=== PATIENT | male | born 1985 | race Caucasian/White ===

== ENCOUNTER 2019-04-10 20:51 | Emergency (ER) | payer BC, OTHER ==
[~2019-04-10] VITALS: Ht 175.3 cm; Wt 58.2 kg
[~2019-04-10 20:51] MED LIST: LIDO20SO16 PO
[2019-04-10 21:05] VITALS: BP 106/64
[2019-04-10] MEDS ORDERED: ERYT1OIN6 LEFTEYE (22:17)
== END 2019-04-10 22:30 | disposition home or self-care (01) ==
LOC: ER 20:51
DX: H00.014 Hordeolum externum left upper eyelid (principal); Z72.89 Other problems related to lifestyle; Z79.899 Other long term (current) drug therapy
CPT/HCPCS: 99283

== ENCOUNTER 2021-10-19 14:48 | Emergency (ER) | payer SELFPAY ==
[~2021-10-19] VITALS: Ht 175.3 cm; Wt 63.6 kg
[2021-10-19 15:28] VITALS: BP 100/64
== END 2021-10-19 17:43 | disposition left against medical advice (07) ==
LOC: ER 14:48
DX: U07.1 COVID-19 (principal); Z53.21 Procedure and treatment not carried out due to patient leaving prior to being seen by health care provider

== ENCOUNTER 2022-04-07 17:42 | Emergency (ER) | payer MEDICAID ==
[~2022-04-07] VITALS: Ht 172.7 cm; Wt 59.1 kg
[2022-04-07 18:03] LABS: BASOPHILS % (AUTO) 0.5 % (0-1); EOSINOPHILS % (AUTO) 0.6 % (0-6); HEMATOCRIT 40.6 % (42.0-52.0); HEMOGLOBIN 13.7 g/dl (14.0-17.9); LYMPHOCYTES % (AUTO) 33.7 % (21-51); MEAN CORPUSCULAR HEMOGLOBIN 32.9 PG (27.0-31.0); MEAN CORPUSCULAR HGB CONC 33.7 g/dL (33.0-36.5); MEAN CORPUSCULAR VOLUME 97.9 FL (78-98); MEAN PLATELET VOLUME 7.2 FL (7.4-10.4); MONOCYTES # (AUTO) 0.4 X10'3 (0-0.9); MONOCYTES % (AUTO) 6.6 % (2-12); NEUTROPHILS # (AUTO) 3.5 X10'3 (1.8-7.7); NEUTROPHILS % (AUTO) 58.6 % (42-75); PLATELET COUNT 245 X10'3 (140-440); RED BLOOD COUNT 4.15 X10'6 (4.70-6.10); RED CELL DISTRIBUTION WIDTH 13.3 % (11.5-14.5)
[2022-04-07 18:10] VITALS: BP 124/73
[2022-04-07 18:19] LABS: ALANINE AMINOTRANSFERASE 22 U/L (12-78); ALBUMIN 4.4 G/DL (3.4-5.0); ALBUMIN/GLOBULIN RATIO 1.3 (1.1-1.5); ALKALINE PHOSPHATASE 72 IU/L (46-116); ANION GAP 7 (8-16); ASPARTATE AMINO TRANSFERASE 18 U/L (10-37); BILIRUBIN,TOTAL 0.7 MG/DL (0.1-1.0); BLOOD UREA NITROGEN 13 MG/DL (7-18); BUN/CREATININE RATIO 18.6 (5.4-32.0); CALCIUM 9.4 MG/DL (8.5-10.1); CHLORIDE 103 MMOL/L (99-107); GLUCOSE 67 MG/DL (70-104); SODIUM 140 MMOL/L (135-145); TOTAL CARBON DIOXIDE 30.2 MMOL/L (24-32); TOTAL PROTEIN 7.9 G/DL (6.4-8.2); eGFR > 90 ML/MIN
[2022-04-07 18:27] LABS: MAGNESIUM 2.3 MG/DL (1.5-2.4)
== END 2022-04-07 20:12 | disposition home or self-care (01) ==
LOC: ER 17:43
DX: R07.89 Other chest pain (principal)
CPT/HCPCS: 36415; 71045; 80053; 83735; 83880; 84484; 85025; 93005; 99285